=== PATIENT | female | born 1935 | race Caucasian/White ===

== ENCOUNTER 2018-02-09 15:05 | Outpatient (CLI) | payer MEDICARE, BC ==
--- NOTE | 2018-02-10 11:18 | XRAY Report ---
TWO VIEWS CERVICAL SPINE: 02/09/2018 INDICATION: Scoliosis. FINDINGS: Frontal and lateral views of the cervical spine demonstrate moderate degenerative disk disease. There is straightening of the normal cervical lordosis. There is no evidence of fracture or subluxation. The prevertebral soft tissues are unremarkable. IMPRESSION: MODERATE DEGENERATIVE CHANGES. TD: 02/10/2018 10:19
--- NOTE | 2018-02-10 11:19 | XRAY Report ---
TWO VIEW THORACIC SPINE: 02/09/2018 CLINICAL INDICATION: Scoliosis. FINDINGS: Frontal and lateral views of the thoracic spine demonstrate dextroscoliosis, measuring 51 degrees between T4 and T10. There is no evidence of compression fracture. Degenerative disk disease is noted. No paraspinal hematoma is seen. IMPRESSION: DEXTROSCOLIOSIS, MEASURING 51 DEGREES BETWEEN T4 AND T10. TD: 02/10/2018 10:21
--- NOTE | 2018-02-10 11:20 | XRAY Report ---
TWO VIEW LUMBAR SPINE: 02/09/2018 CLINICAL INDICATION: Sciatica, scoliosis. FINDINGS: Frontal and lateral views of the lumbar spine demonstrate moderate degenerative disk and facet disease, with 21-degree compensatory levoscoliosis. The bowel gas pattern appears unremarkable. No compression fracture is seen. IMPRESSION: MODERATE DEGENERATIVE CHANGES, WITH COMPENSATORY LEVOSCOLIOSIS. TD: 02/10/2018 10:22
== END 2018-02-09 15:06 | disposition home or self-care (01) ==
LOC: DI 15:05
PROVIDERS: ATTEND Internal Medicine
DX: M54.30 Sciatica, unspecified side (principal); M41.84 Other forms of scoliosis, thoracic region; M41.86 Other forms of scoliosis, lumbar region; M50.30 Other cervical disc degeneration, unspecified cervical region; M51.36 Other intervertebral disc degeneration, lumbar region; M51.34 Other intervertebral disc degeneration, thoracic region
CPT/HCPCS: 72040; 72070; 72100

== ENCOUNTER 2018-10-10 03:12 | Outpatient (CLI) | payer MEDICARE, BC | END 2018-10-10 03:13 | disposition EMS.NT | LOC: EMS 03:12 | PROVIDERS: ATTEND Surgery | DX: R41.0 Disorientation, unspecified (principal) ==

== ENCOUNTER 2019-02-20 13:34 | Outpatient (CLI) | payer MEDICARE, BC | END 2019-02-20 13:35 | disposition EMS.NT | LOC: EMS 13:34 | PROVIDERS: ATTEND Surgery | DX: R41.0 Disorientation, unspecified (principal) ==

== ENCOUNTER 2019-04-04 16:18 | Outpatient (CLI) | payer MEDICARE, BC | END 2019-04-04 16:19 | disposition EMS.NT | LOC: EMS 16:18 | PROVIDERS: ATTEND Surgery | DX: R73.09 Other abnormal glucose (principal) ==

== ENCOUNTER 2019-04-19 11:14 | Outpatient (CLI) | payer MEDICARE, BC | END 2019-04-19 11:15 | disposition EMS.NT | LOC: EMS 11:14 | PROVIDERS: ATTEND Surgery | DX: R73.09 Other abnormal glucose (principal) ==

== ENCOUNTER 2019-04-29 02:36 | Outpatient (CLI) | payer MEDICARE, BC | END 2019-04-29 02:37 | disposition EMS.NT | LOC: EMS 02:36 | PROVIDERS: ATTEND Surgery | DX: R73.09 Other abnormal glucose (principal) ==

== ENCOUNTER 2019-05-15 07:14 | Outpatient (CLI) | payer MEDICARE, BC ==
[2019-05-15 10:28] LABS: CALCIUM 8.8 mg/dL (8.5-10.3); CREATININE 0.6 mg/dL (0.4-1.0); CREATININE,URINE 47.5 mg/dL; MICROALBUM/CREATININE RATIO,UR 6.3 ug/mg (<30.0); MICROALBUMIN,URINE 0.3 mg/dL (0-300.0)
[2019-05-15 10:54] LABS: HB2 TOTAL 13.7 g/dL; HEMOGLOBIN A1C 0.66 g/dL; HEMOGLOBIN A1C % 6.6 % (4.6-6.2)
== END 2019-05-15 07:15 | disposition home or self-care (01) ==
LOC: LAB.S 07:14
PROVIDERS: ATTEND Nurse Practitioner
DX: E10.9 Type 1 diabetes mellitus without complications (principal)
CPT/HCPCS: 36415; 80048; 82043; 82570; 83036; 84443

== ENCOUNTER 2020-01-16 15:56 | Outpatient (CLI) | payer MEDICARE, BC | END 2020-01-16 15:57 | disposition EMS.NT | LOC: EMS 15:56 | PROVIDERS: ATTEND Surgery | DX: R73.09 Other abnormal glucose (principal); W18.30XA Fall on same level, unspecified, initial encounter; Y92.012 Bathroom of single-family (private) house as the place of occurrence of the external cause ==

== ENCOUNTER 2020-09-30 21:19 | Outpatient (CLI) | payer MEDICARE, BC ==
--- OUTSIDE RECORDS SUMMARY | 2020-10-08 00:29 | EXTERNAL MEDICAL SUMMARY RPT | Continuity of Care Document ---
:1935 Demographics Phone Unavailable Preferred Language Unknown Marital Status Unknown Restoration Affiliation Unknown Race Unknown Ethnic Group Unknown Author Organization [facility] Address [address] [place] [address] Phone Care Team Providers Name Role Phone Ni Unavailable Unavailable Problems date description facility 2020-09-30 21:19 CONTACT WITH AND (SUSPECTED) [facility] EXPOSURE TO COVID-19 Results test status date ordered by attending specimen josefina e null F 2020-09-30 LANG.99 MANDY TIMMY 09-30 16:21:00 12:00:00 facility observation status value reference units [facility] See [facility] s eparate report - Report scanned to Patient' s EMR. [facility] Social History date description facility [id number]
== END 2020-09-30 21:20 | disposition home or self-care (01) ==
LOC: COV 21:19
PROVIDERS: ATTEND Family Medicine
DX: Z20.822 Contact with and (suspected) exposure to COVID-19 (principal)

== ENCOUNTER 2021-01-13 07:25 | Outpatient (CLI) | payer MEDICARE, BC ==
[2021-01-13 15:34] LABS: CREATININE,URINE 70.1 mg/dL; MICROALBUM/CREATININE RATIO,UR 2.9 ug/mg (<30.0); MICROALBUMIN,URINE 0.2 mg/dL (0-300.0)
[2021-01-13 19:41] LABS: ESTIMATED AVERAGE GLUCOSE 143 mg/dL (70-100); HEMOGLOBIN A1c% 6.6 % (4.27-6.07)
== END 2021-01-13 07:26 | disposition home or self-care (01) ==
LOC: LAB.S 07:25
PROVIDERS: ATTEND Nurse Practitioner
DX: E10.649 Type 1 diabetes mellitus with hypoglycemia without coma (principal)
CPT/HCPCS: 36415; 82043; 82570; 83036

== ENCOUNTER 2021-04-08 20:14 | Outpatient (CLI) | payer MEDICARE, BC | END 2021-04-08 20:15 | disposition EMS.NT | LOC: EMS 20:14 | DX: Z04.1 Encounter for examination and observation following transport accident (principal); R46.4 Slowness and poor responsiveness ==

== ENCOUNTER 2022-02-23 14:16 | Outpatient (CLI) | payer MEDICARE, BC ==
[2022-02-23 20:17] LABS: ALBUMIN 3.5 g/dL (3.2-5.5); ALBUMIN/GLOBULIN RATIO 1.1 (1.0-2.2); BILIRUBIN,TOTAL 1.3 mg/dL (0.2-1.0); CALCIUM 8.7 mg/dL (8.5-10.3); CREATININE 0.5 mg/dL (0.4-1.0); POTASSIUM 4.3 mmol/L (3.5-5.0); TOTAL PROTEIN 6.8 g/dL (6.7-8.2)
[2022-02-23 21:35] LABS: ESTIMATED AVERAGE GLUCOSE 140 mg/dL (70-100); HEMOGLOBIN A1c% 6.5 % (4.27-6.07)
== END 2022-02-23 14:17 | disposition home or self-care (01) ==
LOC: LAB.S 14:16
PROVIDERS: ATTEND Physician Assistant
DX: E10.9 Type 1 diabetes mellitus without complications (principal)
CPT/HCPCS: 36415; 80053; 83036

== ENCOUNTER 2022-04-15 17:52 | Outpatient (CLI) | payer MEDICARE, BC | END 2022-04-15 17:53 | disposition EMS.NT | LOC: EMS 17:52 | DX: E10.649 Type 1 diabetes mellitus with hypoglycemia without coma (principal) ==

== ENCOUNTER 2022-04-18 17:10 | Outpatient (CLI) | payer MEDICARE, BC | END 2022-04-18 17:11 | disposition left against medical advice (07) | LOC: EMS 17:10 | DX: E10.649 Type 1 diabetes mellitus with hypoglycemia without coma (principal) ==

== ENCOUNTER 2022-11-11 10:58 | Outpatient (CLI) | payer MEDICARE, BC | END 2022-11-11 23:59 | disposition EMS.NT | LOC: EMS 10:58 | DX: E11.649 Type 2 diabetes mellitus with hypoglycemia without coma (principal) ==

== ENCOUNTER 2023-01-18 12:16 | Outpatient (CLI) | payer MEDICARE, BC | END 2023-01-18 12:17 | disposition home or self-care (01) | LOC: DI.S 12:16 | PROVIDERS: ATTEND Nurse Practitioner Family | DX: Z53.9 Procedure and treatment not carried out, unspecified reason (principal) ==

== ENCOUNTER 2023-03-19 18:40 | Outpatient (CLI) | payer MEDICARE, BC | END 2023-03-19 23:59 | disposition critical access hospital (66) | LOC: EMS 18:40 | DX: R41.0 Disorientation, unspecified (principal) | CPT/HCPCS: A0425; A0429 ==

== ENCOUNTER 2023-03-19 19:07 | Emergency (ER) | payer MEDICARE, BC ==
--- NOTE | 2023-03-19 19:21 | ED Physician Documentation ---
History of Present Illness - Stated complaint Stated Complaint: AMS - History obtained from History obtained from: Patient - Additonal information Additional information: 88-year-old woman with longstanding type 1 diabetes became confused while riding in the car planning to go out to dinner with a friend. She had skipped lunch earlier in the day planning on this meal. Her blood sugar was 65 and the confusion went away after the administration of oral glucose. She denies headache, focal neurologic symptoms. 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, No motor deficit, No sensory deficit, Normal speech, Other (NIH stroke scale is 0) Eye Opening: Spontaneous Motor: Obeys Commands Verbal: Oriented GCS Score: 15 Results - Vitals Vitals: Vital Signs - 24 hr 03/19/23 03/19/23 03/19/23 19:18 19:33 19:58 Temperature 36.2 C L Heart Rate 95 81 86 Respiratory 16 16 16 Rate Blood Pressure 221/111 H 205/94 H 176/99 H O2 Saturation 100 94 100 Oxygen O2 Source Room air - Labs Labs: Laboratory Tests 03/19/23 19:12 POC Whole Bld Glucose 141 H PD Medical Decision Making - ED course ED course: 88-year-old woman had an episode of confusion associated with hypoglycemia which has resolved prior to the arrival in the emergency department with negative stroke scale and no complaints or findings at this time other than systolic hypertension. She does not have a history of hypertension. She was observed in the emergency department and remained asymptomatic with improvement in her blood pressures. Departure - Departure Disposition: 01 Home, Self Care Clinical Impression: Hypoglycemia Condition: Good Record reviewed to determine appropriate education?: Yes Instructions: ED Diabetes Hypoglycemia Insulin React Comments: Keep an eye on both your blood sugar and blood pressures. Your blood pressure was fairly elevated here. Follow-up with your doctor this week for further evaluation and treatment. Return for new or worsening symptoms.
[2023-03-19 20:25] VITALS: BP 192/83
== END 2023-03-19 20:28 | disposition home or self-care (01) ==
LOC: EDUNIT# → ED 19:07
DX: E10.649 Type 1 diabetes mellitus with hypoglycemia without coma (principal)
CPT/HCPCS: 99282; 99283

== ENCOUNTER 2023-05-03 21:38 | Outpatient (CLI) | payer MEDICARE, BC | END 2023-05-03 21:39 | disposition EMS.NT | LOC: EMS 21:38 | DX: Z03.89 Encounter for observation for other suspected diseases and conditions ruled out (principal) ==

== ENCOUNTER 2023-10-05 11:51 | Outpatient (CLI) | payer MEDICARE, BC ==
--- NOTE | 2023-10-05 13:57 | XRAY Report ---
PROCEDURE: Shoulder 2+V LT INDICATIONS: PAIN OF LEFT SHOULDER JOINT TECHNIQUE: 3 views of the shoulder were acquired. COMPARISON: None. FINDINGS: Bones: No fractures or dislocations. No suspicious bony lesions. Visualized ribs appear intact. Moderate acromioclavicular degenerative narrowing with spurring. Mild glenohumeral joint space narrow ing. No gross erosions. Soft tissues: No suspicious soft tissue calcifications. The visualized lungs are within normal limi ts. IMPRESSION: Acromioclavicular and glenohumeral arthritic change. Reviewed by: Saima Musa MD on 10/05/2023 1:55 PM PST Approved by: Saima Musa MD on 10/05/2023 1:55 PM PST Station ID: [id number]
== END 2023-10-05 11:52 | disposition home or self-care (01) ==
LOC: DI.S 11:51
PROVIDERS: ATTEND Nurse Practitioner Family
DX: M19.012 Primary osteoarthritis, left shoulder (principal)

== ENCOUNTER 2023-10-09 09:25 | Outpatient (CLI) | payer MEDICARE ==
--- NOTE | 2023-10-09 17:06 | Ultrasound Report ---
PROCEDURE: Abdomen Limited INDICATIONS: ELEVATED LIVER ENZYMES TECHNIQUE: Real-time focused scanning was performed of the abdomen, with image documentation. COMPARISONS: None. FINDINGS: Liver: Liver is normal in size and homogeneous in echotexture. Gallbladder: The gallbladder wall measures 2 mm in diameter. No sludge, stones, pericholecystic fluid or sonographic Snell sign. Biliary ducts: Intrahepatic bile ducts are non-dilated. Extrahepatic bile duct caliber measures 3 m m. Normal is 6-7 mm or less in diameter, or 10 mm or less post-cholecystectomy. Pancreas: Visualized portions of the pancreas are sonographically normal. Right kidney: Normal in size and echotexture. Right kidney measures 11.0 cm long. No hydronephrosis or nephrolithiasis. No solid masses. No complex renal cystic lesions which require follow-up. Aorta: Visualized aorta is normal in caliber at less than 3 cm. IVC: Intrahepatic inferior vena cava is patent. Miscellaneous: No free abdominal fluid. IMPRESSION: 1. No cholelithiasis or findings to suggest choledocholithiasis or acute cholecystitis. Reviewed by: Tiffany Chau MD on 10/09/2023 5:05 PM PST Approved by: Tiffany Chau MD on 10/09/2023 5:05 PM PST Station ID: [id number]
== END 2023-10-09 09:26 | disposition home or self-care (01) ==
LOC: DI 09:25
PROVIDERS: ATTEND Nurse Practitioner Family
DX: R74.01 Elevation of levels of liver transaminase levels (principal)

== ENCOUNTER 2023-10-09 09:53 | Emergency (ER) | payer MEDICARE ==
[2023-10-09 10:28] VITALS: O2SAT 100
--- NOTE | 2023-10-09 11:46 | ED Physician Documentation ---
History of Present Illness - Stated complaint Stated Complaint: WEAKNESS/RASH/SHOULDER PX - Chief complaint Chief Complaint: General - History obtained from History obtained from: Patient, Family - History of Present Illness Pain level max: 3 Pain level now: 3 - Additonal information Additional information: Patient is an 88-year-old female who presents to the emergency department complaint of generalized weakness for the past several days. She is a diabetic. Blood sugars reportedly are well-controlled at home. She has developed a diffuse rash over her anterior chest over the past 1 week. She has had left shoulder pain for several months, diagnosed as arthritis versus possible rotator cuff injury. She states her right shoulder hurts mildly now as well. Worse with movement, better with rest. No chest pain. Denies any shortness of breath to me. Her son is with her and states that she has been weaker than usual over the past 1 week. They came to the hospital this morning for an outpatient ultrasound of her liver due to elevated liver enzymes after taking Tylenol recently. The son brought a note from another family member that had remarked about pitting edema, the patient denies any swelling. She states she does not feel swollen. She has no history of heart failure, heart attacks. Review of Systems Constitutional: denies: Fever, Chills Ears: denies: Ear pain Nose: denies: Rhinorrhea / runny nose Throat: denies: Sore throat Cardiac: denies: Chest pain / pressure, Palpitations Respiratory: denies: Dyspnea, Cough, Wheezing GI: denies: Vomiting, Diarrhea Skin: reports: Rash (Itchy, erythematous, anterior chest) Musculoskeletal: denies: Neck pain, Back pain Neurologic: denies: Headache PD PAST MEDICAL HISTORY - Past Medical History Past Medical History: Yes Cardiovascular: None Respiratory: None Neuro: None Endocrine/Autoimmune: Type 1 diabetes GI: Other WORKING FOREMAN: None : None HEENT: None Psych: None Musculoskeletal: Other Derm: Eczema - Past Surgical History Past Surgical History: Yes Ortho: Knee replacement, Arthroscopic surgery, Carpal Tunnel surgery HEENT: Cataracts - Present Medications Home Medications: Ambulatory Orders Medication Instructions Recorded Confirmed Esomeprazole Magnesium [Nexium] 40 mg PO DAILY #30 cap 10/09/23 Furosemide [Lasix] 20 mg PO DAILY #10 tablet 10/09/23 Insulin Aspart (Niacinamide) 4 - 6 unit SUBQ ACHS 10/09/23 10/09/23 [Fiasp 100 Unit/ml Vial] Insulin Glargine,Hum.rec.anlog 6 units SUBQ DAILY 10/09/23 10/09/23 [Tofabricehussain Solostar] Potassium Chloride 10 meq PO DAILY #10 tab 10/09/23 - Allergies Allergies/Adverse Reactions: Allergies Allergy/AdvReac Type Severity Reaction Status Date / Time Antihistamines - Alkylamine Allergy Unknown Verified 10/09/23 10:14 Penicillins Allergy Rash Verified 10/09/23 10:14 - Social History Does the pt smoke?: No Smoking Status: Former smoker Does the pt drink ETOH?: Yes ETOH Use: Wine Does the pt have substance abuse?: No - Immunizations Immunizations are current?: Yes PD ED PE NORMAL - Vitals Vital signs reviewed: Yes - General General: Alert and oriented X 3, No acute distress - HEENT HEENT: PERRL, Moist mucous membranes - Neck Neck: Supple, no meningeal sign - Cardiac Cardiac: RRR, Strong equal pulses - Respiratory Respiratory: No respiratory distress, Clear bilaterally - Abdomen Abdomen: Soft, Non tender, Non distended - Rectal Rectal: Other (normal exam. no stool in rectal vault.) - Back Back: No CVA TTP, No spinal TTP - Derm Derm: Warm and dry - Extremities Extremities: No edema, No calf tenderness / cord - Neuro Neuro: Alert and oriented X 3, adz worker 2-12 intact, No motor deficit, No sensory deficit, Normal speech Eye Opening: Spontaneous Motor: Obeys Commands Verbal: Oriented GCS Score: 15 - Psych Psych: Normal mood, Normal affect Results - Vitals Vitals: Vital Signs - 24 hr 10/09/23 10/09/23 10/09/23 10:17 13:19 15:28 Temperature 36.4 C L 36 C L Heart Rate 80 68 77 Respiratory 18 20 20 Rate Blood Pressure 126/94 H 133/58 H 153/68 H O2 Saturation 100 100 100 10/09/23 17:20 Temperature 36.2 C L Heart Rate 81 Respiratory 18 Rate Blood Pressure 170/76 H O2 Saturation 100 Oxygen O2 Source Room air - EKG (time done) 1151 EKG releavant findings:: EKG personally interpreted by author of this note. Relevant findings are: Rate: Rate (enter#) (72) Rhythm: NSR [place]: Normal Intervals: Normal AK QRS: Normal Ischemia: Normal ST segments, Q waves (v1-2) - Labs Labs: Laboratory Tests 10/09/23 10/09/23 10/09/23 11:50 11:50 11:50 WBC 7.6 RBC 3.30 L Hgb 10.1 L Hct 30.6 L MCV 92.7 MCH 30.6 MCHC 33.0 RDW 13.2 Plt Count 371 MPV 8.8 Neut # (Auto) 5.5 Lymph # (Auto) 0.6 L [place] # (Auto) 0.7 Eos # (Auto) 0.7 Baso # (Auto) 0.1 Absolute Nucleated RBC 0.00 Nucleated RBC % 0.0 PT INR APTT Sodium 134 L Potassium 3.8 Chloride 99 L Carbon Dioxide 25 Anion Gap 10.0 BUN 13 Creatinine 0.4 L Estimated GFR (MDRD) 151 Glucose 138 H Calcium 8.4 L Phosphorus 3.4 Magnesium 1.6 L Total Bilirubin 0.8 AST 106 H ALT 61 H Alkaline Phosphatase 64 Troponin I High Sens 19.6 H* B-Natriuretic Peptide Total Protein 5.7 L Albumin 3.1 L Globulin 2.6 Albumin/Globulin Ratio 1.2 Lipase 10 L Urine Color Urine Clarity Urine pH Ur Specific [place] Urine Protein Urine Glucose (UA) Urine Ketones Urine Occult Blood Urine Nitrite Urine Bilirubin Urine Urobilinogen Ur Leukocyte Esterase Ur Microscopic Review Urine Culture Comments 10/09/23 10/09/23 10/09/23 11:50 12:02 13:45 WBC RBC Hgb Hct MCV MCH MCHC RDW Plt Count MPV Neut # (Auto) Lymph # (Auto) [place] # (Auto) Eos # (Auto) Baso # (Auto) Absolute Nucleated RBC Nucleated RBC % PT 13.6 H INR 1.2 APTT 27.5 Sodium Potassium Chloride Carbon Dioxide Anion Gap BUN Creatinine Estimated GFR (MDRD) Glucose Calcium Phosphorus Magnesium Total Bilirubin AST ALT Alkaline Phosphatase Troponin I High Sens B-Natriuretic Peptide 411 H Total Protein Albumin Globulin Albumin/Globulin Ratio Lipase Urine Color YELLOW Urine Clarity CLEAR Urine pH 6.0 Ur Specific [place] 1.015 Urine Protein NEGATIVE Urine Glucose (UA) NEGATIVE Urine Ketones NEGATIVE Urine Occult Blood NEGATIVE Urine Nitrite NEGATIVE Urine Bilirubin NEGATIVE Urine Urobilinogen 1 (NORMAL) Ur Leukocyte Esterase NEGATIVE Ur Microscopic Review NOT INDICATED Urine Culture Comments NOT INDICATED 10/09/23 16:08 WBC 7.0 RBC 3.39 L Hgb 10.2 L Hct 31.5 L MCV 92.9 MCH 30.1 MCHC 32.4 RDW 13.3 Plt Count 349 MPV 8.8 Neut # (Auto) 4.9 Lymph # (Auto) 0.6 L [place] # (Auto) 0.7 Eos # (Auto) 0.7 Baso # (Auto) 0.0 Absolute Nucleated RBC 0.00 Nucleated RBC % 0.0 PT INR APTT Sodium Potassium Chloride Carbon Dioxide Anion Gap BUN Creatinine Estimated GFR (MDRD) Glucose Calcium Phosphorus Magnesium Total Bilirubin AST ALT Alkaline Phosphatase Troponin I High Sens B-Natriuretic Peptide Total Protein Albumin Globulin Albumin/Globulin Ratio Lipase Urine Color Urine Clarity Urine pH Ur Specific [place] Urine Protein Urine Glucose (UA) Urine Ketones Urine Occult Blood Urine Nitrite Urine Bilirubin Urine Urobilinogen Ur Leukocyte Esterase Ur Microscopic Review Urine Culture Comments - Rads (name of study) Chest x-ray Relevant Findings:: Final report received, See rad report PD Medical Decision Making - ED course Complexity details: reviewed results, re-evaluated patient, considered differential, d/w patient, d/w family ED course: 88-year-old female with multiple medical complaints. Normal liver ultrasound this morning. LFTs are returning back to her normal baseline. No bilirubin elevation. Alkaline phosphatase is normal. Possible that her mild LFT elevation earlier was secondary to her Tylenol use. She does have a slight rash over the anterior chest, but there are no secondary signs of infection, overall the rash appears to be improving from what it was prior, possible rash from cholestasis? She is diabetic, we will hold steroids at this time. Her laboratory testing does reveal a drop in her protein and albumin, recommend increasing her nutrition at home. She does have a mild normocytic anemia, discussed the case with her [id number] who is a physician in [place], states that 2 weeks ago her hemoglobin was 12, it is 10 currently. There is no change on repeat H&H in the emergency department. CT scan does show possible thickening of her stomach consistent with gastritis and possible mild colitis. Patient states she has never had a colonoscopy. Recommend that she have an outpatient colonoscopy as well as endoscopy. Will start the patient on omeprazole. She also has a mild elevation of her BNP and has a reported history of pitting edema. Therefore we will start her on Lasix and potassium. There is no indication for antibiotics for her colitis, she is not having fevers, elevated white blood cell count, noticeable blood in the stool. She does have occasional diarrhea. We will hold antibiotics at this time. Patient was given IV magnesium and IV fluids, feels better and is ambulating under her own power without difficulty. GCS 15. Normal neurological exam. Patient and family counseled regarding signs and symptoms for which I believe and urgent re- evaluation would be necessary. Patient with good understanding of and agreement to plan and is comfortable going home at this time This document was made in part using voice recognition software. While efforts are made to proofread this document, sound alike and grammatical errors may occur. Departure - Departure Disposition: Home, Self Care Clinical Impression: Colitis, Hypomagnesemia Anemia Qualifiers: Anemia type: unspecified type Qualified Code(s): D64.9 - Anemia, unspecified Gastritis Qualifiers: Gastritis type: unspecified gastritis Chronicity: acute Gastritis bleeding: presence of bleeding unspecified Qualified Code(s): K29.00 - Acute gastritis without bleeding Condition: Good Instructions: ED Gastritis Follow-Up: Elizabeth Willett ARNP [Provider Admit Priv/Credential] - Elizabeth Willett ARNP [Physician No Access] - Abisai Terrazas MD [Provider Admit Priv/Credential] - [facility] [Provider Group] Prescriptions: Furosemide [Lasix] 20 mg PO DAILY #10 tablet Esomeprazole Magnesium [Nexium] 40 mg PO DAILY #30 cap Potassium Chloride 10 meq PO DAILY #10 tab Comments: Please follow-up with your doctor for further care. Please return if you worsen. You do have a mild anemia today, after speaking with your [id number], it appears that your hemoglobin was 12 2 weeks ago and is 10 today. There is no change on repeat blood draw tonight. Your CT scan does show evidence of gastritis or thickening of the stomach, we will start you on medication for this. There is also evidence of thickening in the colon consistent with possible colitis. As you are not having fevers or an elevated white count or pain, we will hold antibiotics at this time and recommend that y ou have a colonoscopy and endoscopy for further evaluation. Your magnesium was low and you were given IV magnesium here. Your protein levels are low as well, you need to ensure that you are eating adequate levels of protein at home. Your liver function tests are improved from your prior blood draw, this will need to be continued to be monitored by your doctor. You do have an elevation of your BNP, you will need a cardiac echocardiogram with your doctor. They can order this to be done at the hospital. We will start you on Lasix to help any excess fluid retention. The potassium needs to be taken while you are taking the Lasix as Lasix can decrease your potassium levels. Your prescriptions were sent to [facility] in [place]. PROCEDURE: Abdomen/Pelvis W INDICATIONS: weakness, hgb CONTRAST: Omni 300 100ml TECHNIQUE: After the administration of intravenous contrast, a CT scan of the abdomen and pelvis was performed. Images were recorded and evaluated at appropriate window settings. Reformats: coronal and sagittal. For radiation dose reduction, the following was used: automated exposure control, adjustment of mA and/or kV according to patient size. COMPARISON: None. FINDINGS: Image quality: Excellent. Lung bases and heart: Unremarkable. Liver: No solid mass. Gallbladder and biliary tree: Normal Spleen: No splenomegaly. Pancreas: No pancreatic ductal dilation. Adrenals: No adrenal nodule. Kidneys and ureters: No hydronephrosis. No renal cystic lesion which requires follow up. No solid mass. Bowel and peritoneum: No bowel distention. Diffuse colonic inflammatory changes with wall thickening from the sigmoid through the distal cecum. No abscess or free fluid identified. Wall thickening of the stomach. Lymph nodes: No central or retroperitoneal adenopathy. Vessels: No infrarenal aortic aneurysm. PELVIS Reproductive organs: Calcified fibroids. Bladder: No abnormal wall thickening, accounting for underdistention. Pelvic lymph nodes: No pelvic adenopathy by size criteria. Bones: No aggressive osseous abnormality. Multilevel degenerative changes throughout the visualized spine. Other: No significant ventral or inguinal hernia. IMPRESSION: Wall thickening of the colon concerning for colitis Wall thickening of the stomach may be exaggerated by under-distention but is concerning for gastritis. Forms: PCP List Discharge Date/Time: 10/09/23 17:41
[2023-10-09 11:59] LABS: BASOPHILS # (AUTO) 0.1 10^3/uL (0.0-0.1); BASOPHILS % (AUTO) 0.7 %; EOSINOPHILS # (AUTO) 0.7 10^3/uL (0.0-0.7); EOSINOPHILS % (AUTO) 9.1 %; HCT - HEMATOCRIT 30.6 % (37.0-47.0); HGB - HEMOGLOBIN 10.1 g/dL (12.0-16.0); LYMPHOCYTES # (AUTO) 0.6 10^3/uL (1.5-3.5); LYMPHOCYTES % (AUTO) 7.5 %; MEAN CORPUSCULAR HEMOGLOBIN 30.6 pg (27.0-31.0); MEAN CORPUSCULAR VOLUME 92.7 fL (81.0-99.0); MEAN PLATELET VOLUME 8.8 fL (7.9-10.8); MONOCYTES # (AUTO) 0.7 10^3/uL (0.0-1.0); MONOCYTES % (AUTO) 9.1 %; NEUTROPHILS # (AUTO) 5.5 10^3/uL (1.5-6.6); NEUTROPHILS % (AUTO) 73.1 %; PLT - PLATELET COUNT 371 10^3/uL (130-450); RED CELL DISTRIBUTION WIDTH 13.2 % (12.0-15.0); WHITE BLOOD COUNT 7.6 x10^3/uL (4.8-10.8)
[2023-10-09 12:13] LABS: ALBUMIN 3.1 g/dL (3.2-5.5); ALBUMIN/GLOBULIN RATIO 1.2 (1.0-2.2); BILIRUBIN,TOTAL 0.8 mg/dL (0.2-1.0); CALCIUM 8.4 mg/dL (8.5-10.3); CREATININE 0.4 mg/dL (0.6-1.3); MAGNESIUM 1.6 mg/dL (1.7-2.3); PHOSPHORUS 3.4 mg/dL (2.5-5.0); POTASSIUM 3.8 mmol/L (3.5-4.5); TOTAL PROTEIN 5.7 g/dL (6.4-8.9)
[2023-10-09] MEDS ORDERED: MAGNESIUM SULFATE 2 GRAM 2 GM/50 ML BAG IV ONE (12:15)
[2023-10-09] MEDS ORDERED: SODIUM CHLORIDE 0.9% 500 ML IV STA (12:15)
[2023-10-09 12:23] LABS: PARTIAL THROMBOPLASTIN TIME 27.5 secs (24.9-33.3)
[2023-10-09 12:28] LABS: INR 1.2 (0.8-1.2); PT - PROTHROMBIN TIME 13.6 secs (9.9-12.6)
[2023-10-09] MEDS ORDERED: FUROSEMIDE 20 MG/2 ML VIAL IVP STA (12:34)
--- NOTE | 2023-10-09 12:35 | XRAY Report ---
PROCEDURE: Chest 1V INDICATIONS: dyspnea TECHNIQUE: One view of the chest was acquired. COMPARISON: None. FINDINGS: Surgical changes and devices: None. Lungs and pleura: No pleural effusions or pneumothorax. Lungs are clear. Mediastinum: Mediastinal contours appear normal. Heart size is normal. Bones and chest wall: No suspicious bony lesions. Overlying soft tissues appear unremarkable. Ser pentine curvature of the thoracic spine. IMPRESSION: No acute cardiopulmonary process. Reviewed by: Mahendra Chance MD on 10/09/2023 11:34 AM [facility] Approved by: Mahendra Chance MD on 10/09/2023 11:34 AM [facility] Station ID: [id number]
[2023-10-09] MEDS ORDERED: iohexoL-300 100 ML VIAL ONE (13:49)
[2023-10-09 14:26] LABS: BILIRUBIN,URINE NEGATIVE (NEGATIVE); GLUCOSE, URINE (UA) NEGATIVE (NEGATIVE); KETONES,URINE (UA) NEGATIVE (NEGATIVE); LEUKOCYTE ESTERASE, URINE NEGATIVE (NEGATIVE); NITRITE,URINE NEGATIVE (NEGATIVE); OCCULT BLOOD,URINE NEGATIVE (NEGATIVE); PROTEIN,URINE NEGATIVE (NEGATIVE); UROBILINOGEN,URINE 1 (NORMAL) E.U./dL (NORMAL)
[2023-10-09 14:27] LABS: CLARITY,URINE CLEAR (CLEAR)
[2023-10-09 16:15] LABS: BASOPHILS % (AUTO) 0.6 %; EOSINOPHILS # (AUTO) 0.7 10^3/uL (0.0-0.7); EOSINOPHILS % (AUTO) 10.6 %; HCT - HEMATOCRIT 31.5 % (37.0-47.0); HGB - HEMOGLOBIN 10.2 g/dL (12.0-16.0); LYMPHOCYTES # (AUTO) 0.6 10^3/uL (1.5-3.5); MEAN CORPUSCULAR HEMOGLOBIN 30.1 pg (27.0-31.0); MEAN CORPUSCULAR HGB CONC 32.4 g/dL (32.0-36.0); MEAN CORPUSCULAR VOLUME 92.9 fL (81.0-99.0); MEAN PLATELET VOLUME 8.8 fL (7.9-10.8); MONOCYTES # (AUTO) 0.7 10^3/uL (0.0-1.0); MONOCYTES % (AUTO) 10.4 %; NEUTROPHILS # (AUTO) 4.9 10^3/uL (1.5-6.6); NEUTROPHILS % (AUTO) 70.1 %; PLT - PLATELET COUNT 349 10^3/uL (130-450); RED BLOOD COUNT 3.39 10^6/uL (4.20-5.40); RED CELL DISTRIBUTION WIDTH 13.3 % (12.0-15.0)
--- NOTE | 2023-10-09 16:40 | CT Report ---
PROCEDURE: Abdomen/Pelvis W INDICATIONS: weakness, hgb CONTRAST: Omni 300 100ml TECHNIQUE: After the administration of intravenous contrast, a CT scan of the abdomen and pelvis was performed. Images were recorded and evaluated at appropriate window settings. Reformats: coronal and sagittal. F or radiation dose reduction, the following was used: automated exposure control, adjustment of mA and /or kV according to patient size. COMPARISON: None. FINDINGS: Image quality: Excellent. Lung bases and heart: Unremarkable. Liver: No solid mass. Gallbladder and biliary tree: Normal Spleen: No splenomegaly. Pancreas: No pancreatic ductal dilation. Adrenals: No adrenal nodule. Kidneys and ureters: No hydronephrosis. No renal cystic lesion which requires follow up. No solid mas s. Bowel and peritoneum: No bowel distention. Diffuse colonic inflammatory changes with wall thickening from the sigmoid through the distal cecum. No abscess or free fluid identified. Wall thickening of th e stomach. Lymph nodes: No central or retroperitoneal adenopathy. Vessels: No infrarenal aortic aneurysm. PELVIS Reproductive organs: Calcified fibroids. Bladder: No abnormal wall thickening, accounting for underdistention. Pelvic lymph nodes: No pelvic adenopathy by size criteria. Bones: No aggressive osseous abnormality. Multilevel degenerative changes throughout the visualized s pine. Other: No significant ventral or inguinal hernia. IMPRESSION: Wall thickening of the colon concerning for colitis Wall thickening of the stomach may be exaggerated by under-distention but is concerning for gastritis . Reviewed by: Mahendra Chance MD on 10/09/2023 3:39 PM [facility] Approved by: Mahendra Chance MD on 10/09/2023 3:39 PM [facility] Station ID: [id number]
[2023-10-09 17:25] VITALS: BP 170/76
[2023-10-09] MEDS ORDERED: iohexoL-300 100 ML VIAL IVP ONE (19:14)
== END 2023-10-09 17:41 | disposition home or self-care (01) ==
LOC: ED 09:53
DX: K29.00 Acute gastritis without bleeding (principal); D64.9 Anemia, unspecified; K52.9 Noninfective gastroenteritis and colitis, unspecified; E83.42 Hypomagnesemia; R74.01 Elevation of levels of liver transaminase levels; E10.9 Type 1 diabetes mellitus without complications; Z79.4 Long term (current) use of insulin; Z87.891 Personal history of nicotine dependence
CPT/HCPCS: 36415; 71045; 74177; 76705; 80053; 81003; 83690; 83735; 83880; 84100; 84484; 85025; 85610; 85730; 93005; 96365; 96375; 99284; Q9967; 81001; 87086

== ENCOUNTER 2023-10-16 12:20 | Outpatient (CLI) | payer MEDICARE | END 2023-10-16 12:21 | disposition home or self-care (01) | LOC: EMS 12:20 | DX: S20.211A Contusion of right front wall of thorax, initial encounter (principal); W01.190A Fall on same level from slipping, tripping and stumbling with subsequent striking against furniture, initial encounter; Y92.009 Unspecified place in unspecified non-institutional (private) residence as the place of occurrence of the external cause ==

== ENCOUNTER 2023-12-21 15:05 | Outpatient (CLI) | payer MEDICARE, BC | END 2023-12-21 15:06 | disposition home or self-care (01) | LOC: DI 15:05 | PROVIDERS: ATTEND Nurse Practitioner Family | DX: R89.1 Abnormal level of hormones in specimens from other organs, systems and tissues (principal) | CPT/HCPCS: 93307 ==

== ENCOUNTER 2024-01-03 16:59 | Outpatient (CLI) | payer MEDICARE | END 2024-01-03 23:59 | disposition EMS.NT | LOC: EMS 16:59 | DX: E11.649 Type 2 diabetes mellitus with hypoglycemia without coma (principal) ==

== ENCOUNTER 2024-02-05 16:59 | Outpatient (CLI) | payer MEDICARE, BC | END 2024-02-05 23:59 | disposition left against medical advice (07) | LOC: EMS 16:59 | DX: E11.649 Type 2 diabetes mellitus with hypoglycemia without coma (principal); Z79.4 Long term (current) use of insulin ==

== ENCOUNTER 2024-04-20 10:50 | Outpatient (CLI) | payer MEDICARE, BC | END 2024-04-20 23:59 | disposition EMS.NT | LOC: EMS 10:50 | DX: R53.1 Weakness (principal); U07.1 COVID-19; W01.0XXA Fall on same level from slipping, tripping and stumbling without subsequent striking against object, initial encounter; Y92.002 Bathroom of unspecified non-institutional (private) residence as the place of occurrence of the external cause ==

== ENCOUNTER 2025-07-21 18:58 | Observation (INO) ==
[2025-07-21 19:34] LABS: HCT - HEMATOCRIT 37.7 % (37.0-47.0); HGB - HEMOGLOBIN 12.1 g/dL (12.0-16.0); MEAN PLATELET VOLUME 9.5 fL (7.9-10.8); NRBC ABSOLUTE COUNT (AUTO) 0.00 x10^3/uL; NUCLEATED RED BLOOD CELLS AUTO 0.0 /100WBC; PLT - PLATELET COUNT 206 10^3/uL (130-450); RED CELL DISTRIBUTION WIDTH 15.2 % (12.0-15.0)
[2025-07-21 19:52] LABS: ALT ALANINE AMINOTRANSFERASE 17 IU/L (10-60); AST ASPARTATE AMINOTRANSFERASE 24 IU/L (10-42); BUN - BLOOD UREA NITROGEN 12 mg/dL (6-20); CARBON DIOXIDE - CO2 24 mmol/L (21-32); CK- CREATINE KINASE 131 IU/L (30-223); CREATININE 0.4 mg/dL (0.6-1.3); GFR - MDRD 151 (>89)
--- OUTSIDE RECORDS SUMMARY | 2025-07-21 20:06 | EXTERNAL MEDICAL SUMMARY RPT | Continuity of Care Document ---
Author Organization [facility] Address [address] [place] [id number] Phone Problems date description facility 2025-05-22 10:25 Pain [facility] right hip [facility] 2025-05-24 11:06 Pain in left hip [facility] 2025-07-16 16:30 Asymptomatic menopausal state [facility] Results/Labs test date facility value unit notes Result panel 1 COVID-19 [facility] 2025-05-19 12:35 [facility] NOT DETECTED (missing) YES Y NO NO NO NO NO NO A negative test result for this test indicates that SARS-CoV-2 RNA was not present in the specimen above the limit of detection. Testing performed on the [employer] RP2.1 Panel, a multiplexed nucleic acid repiratory panel. Negative results do not preclude infection with SARS-CoV-2 virus and should not be the sole basis of a patient management decision. In some patients repeat testing at various time points may be necessary for virus detection. False-negative results may arise from improper sample collection, degradation of viral RNA during shipping or storage, the presence of PCR inhibitors, and/or mutation in the SARS-CoV-2 virus. Result panel 2 SALICYLATE 2025-05-19 12:44 [facility] < 1.5 mg/dl Salicyalte Theraputic Range <30mg/dL As of March 2023 testing method has changed, this may include reference ranges. LIPASE 2025-05-19 12:44 [facility] < 10 u/l As of March 2023 testing method has changed, this may include reference ranges. ETOH - ETHANOL 2025-05-19 12:44 [facility] < 10.0 mg/dl Blood Alcohol Levels Level Sporadic Drinkers Chronic drinkers == 100 mg/dL Legally intoxicated* Minimal signs 200-250 mg/dL Alertness lost, Effort needed to becoming lethargic maintain emotional and motor control 300-350 mg/dL Stupor to coma Drowsy and slow >500 mg/dL Possible Coma *The legal definition of intoxication varies. This assy is for medical decision making only. As of March 2023 testing method has changed, this may include reference ranges. NUCLEATED RED BLOOD CELLS AUTO 2025-05-19 12:44 [facility] 0.0 /100wbc (missing) BASOPHILS # (AUTO) 2025-05-19 12:44 [facility] 0.0 10 3/ul (missing) EOSINOPHILS # (AUTO) 2025-05-19 12:44 [facility] 0.0 10 3/ul (missing) NRBC ABSOLUTE COUNT (AUTO) 2025-05-19 12:44 [facility] 0.00 x10 3/ul (missing) ACETAMINOPHEN 2025-05-19 12:44 [facility] 0.1 ug/ml Acetaminophen Therapeutic concentration 10-30 ug/mLHepatotoxicity concentrations - >150 ug/mL at 4hr after ingestion >75 ug/mL at 8hr after ingestion >40 ug/mL at 12hr after ingestion As of March 2023 testing method has changed, this may include reference ranges. MONOCYTES # (AUTO) 2025-05-19 12:44 [facility] 0.7 10 3/ul (missing) LYMPHOCYTES # (AUTO) 2025-05-19 12:44 [facility] 0.8 10 3/ul (missing) CREATININE 2025-05-19 12:44 [facility] 0.9 mg/dl As of March 2023 testing method has changed, this may include reference ranges. ALBUMIN/GLOBULIN RATIO 2025-05-19 12:44 [facility] 1.1 (missing) (missing) THYROID STIMULATING HORMONE 2025-05-19 12:44 [facility] 1.27 uiu/ml (missing) BILIRUBIN,TOTAL 2025-05-19 12:44 [facility] 1.6 mg/dl As of March 2023 testing method has changed, this may include reference ranges. HGB - HEMOGLOBIN 2025-05-19 12:44 [facility] 10.3 g/dl (missing) SODIUM 2025-05-19 12:44 [facility] 126 mmol/l (missing) RED CELL DISTRIBUTION WIDTH 2025-05-19 12:44 [facility] 14.4 % (missing) AST ASPARTATE AMINOTRANSFERASE 2025-05-19 12:44 [facility] 17 iu/l As of March 2023 testing method has changed, this may include reference ranges. PLT - PLATELET COUNT 2025-05-19 12:44 [facility] 223 10 3/ul (missing) CK- CREATINE KINASE 2025-05-19 12:44 [facility] 233 iu/l As of March 2023 testing method has changed, this may include reference ranges. CARBON DIOXIDE - CO2 2025-05-19 12:44 [facility] 24 mmol/l As of March 2023 testing method has changed, this may include reference ranges. BUN - BLOOD UREA NITROGEN 2025-05-19 12:44 [facility] 26 mg/dl As of March 2023 testing method has changed, this may include reference ranges. MEAN CORPUSCULAR HEMOGLOBIN 2025-05-19 12:44 [facility] 29.5 pg (missing) GLOBULIN 2025-05-19 12:44 [facility] 3.2 g/dl (missing) ALBUMIN 2025-05-19 12:44 [facility] 3.4 g/dl As of March 2023 testing method has changed, this may include reference ranges. RED BLOOD COUNT 2025-05-19 12:44 [facility] 3.49 10 6/ul (missing) POTASSIUM 2025-05-19 12:44 [facility] 3.9 mmol/l As of March 2023 testing method has changed, this may include reference ranges. HCT - HEMATOCRIT 2025-05-19 12:44 [facility] 30.3 % (missing) GLUCOSE 2025-05-19 12:44 [facility] 337 mg/dl As of March 2023 testing method has changed, this may include reference ranges. MEAN CORPUSCULAR HGB CONC 2025-05-19 12:44 [facility] 34.0 g/dl (missing) GFR - MDRD 2025-05-19 12:44 [facility] 59 (missing) The IDMS-traceable MDRD Study Equation has been validated extensively in and populations between the ages of 18 and 70 with impaired kidney function (eGFR < 60 mL/min/1.73m2) and has shown good performance for patients with all common causes of kidney disease. Although this equation has not been validated for patients older than 70, an MDRD-derived eGFR may still be a useful tool for providers caring for patients older than 70. References: http://www.nkdep.ni h.gov/lab-evaluatio n/gfr/creatinine-st and ardization, last updated November 2011. NEUTROPHILS # (AUTO) 2025-05-19 12:44 [facility] [employer] 6.0 10 3/ul (missing) TOTAL PROTEIN 2025-05-19 12:44 [facility] [employer] [facility] 6.6 g/dl As of March 2023 testing method has changed, this may include reference ranges. ANION GAP 2025-05-19 12:44 [facility] [employer] 7.0 (missing) (missing) WHITE BLOOD COUNT 2025-05-19 12:44 [facility] [employer] 7.5 x10 3/ul (missing) ALT ALANINE AMINOTRANSFERASE 2025-05-19 12:44 [facility] [employer] 8 iu/l As of March 2023 testing method has changed, this may include reference ranges. CALCIUM 2025-05-19 12:44 [employer] 8.7 mg/dl As of March 2023 testing method has changed, this may include reference ranges. MEAN PLATELET VOLUME 2025-05-19 12:44 [employer] [facility] 8.9 fl (missing) ALKALINE PHOSPHATASE 2025-05-19 12:44 [facility] 80 iu/l As of March 2023 testing method has changed, this may include reference ranges. MEAN CORPUSCULAR VOLUME 2025-05-19 12:44 [facility] [employer] 86.8 fl (missing) CHLORIDE 2025-05-19 12:44 [facility] 95 mmol/l As of March 2023 testing method has changed, this may include reference ranges. Result panel 3 GLUCOSE, WHOLE BLOOD 2025-05-19 14:19 [employer] 244 (missing) RN notified. Result panel 4 UROBILINOGEN,URINE 2025-05-19 17:00 [employer] 0.2 (NORMAL) e.u./dl (missing) SPECIFIC GRAVITY,URINE 2025-05-19: [facility] [employer] 1.020 (missing) (missing) PH,URINE 2025-05-19: [facility] 6.0 ph (missing) CLARITY,URINE 2025-05-19: [facility] [employer] CLEAR (missing) (missing) MUDS CUTOFF CONCENTRATIONS 2025-05-19: [facility] CUTOFF CONC BELOW: (missing) [facility] uses the PROFILE-V MyVerse Drugs of Abuse Test System. It detects drug classes at the following cutoff concentrations: AMP Amphetamine (d-Amphetamine) 500 ng/mL BAR Barbiturates (Butalbital) 200 ng/mL BZO Benzodiazepines (Nordiazepam) 150 ng/mL BUP Buprenorphine (Buprenorphine) 10 ng/mL YURIY Cocaine (Benzoylecgonine) 150 ng/mL MAMP Methamphetamine (d-Methamphetamine ) 500 ng/mL MTD Methadone (Methadone) 200 ng/mL OPI Opiates (Morphine) 100 ng/mL OXY Oxycodone (Oxycodone) 100 ng/mL PCP Phencyclidine (Phencyclidine) 25 ng/mL BUP Buprenorphine (Buprenorphine) 10 ng/mL THC Cannabinoids (64-tnt-7-carboxy- 9-THC) 50 ng/mL TCA Tricyclic Antidepressants (Desipramine) 300 ng/mL All drug screen results are unconfirmed. Results are to be used for medical (i.e. treatment) purposes only. Unconfirmed screening results must not be used for non-medical purposes (e.g., employment testing, legal testing). AMPHETAMINE SCREEN,URINE 2025-05-19: [facility] NEGATIVE (missing) (missing) BARBITURATE SCREEN,UR 2025-05-19: [facility] [employer] NEGATIVE (missing) (missing) BENZODIAZEPINES SCREEN, URINE [facility] NE[facility] (missing) (missing) BUPRENORPHINE SCREEN, URINE [facility]25-05-19[facility] NE[facility] (missing) (missing) COCAINE SCREEN URINE 2025-05-19: [facility] [employer] NEGATIVE (missing) (missing) LEUKOCYTE ESTERASE, URINE 2025-05-19 17:00 [facility] NEGATIVE (missing) (missing) METHADONE SCREEN, URINE 2025-05-19 17:00 [facility] NEGATIVE (missing) (missing) METHAMPHETAMINES SCREEN, URINE 2025-05-19 17:00 [facility] NEGATIVE (missing) (missing) NITRITE,URINE 2025-05-19 17:00 [facility] NEGATIVE (missing) (missing) OCCULT BLOOD,URINE 2025-05-19 17:00 [facility] NEGATIVE (missing) (missing) OPIATE SCREEN, URINE 2025-05-19 17:00 [facility] NEGATIVE (missing) (missing) OXYCODONE SCREEN, URINE 2025-05-19 17:00 [facility] NEGATIVE (missing) (missing) PHENCYCLIDINE SCREEN, URINE 2025-05-19 17:00 [facility] NEGATIVE (missing) (missing) THC CANNABINOID SCREEN, URINE 2025-05-19 17:00 [facility] NEGATIVE (missing) (missing) TRICYCLIC ANTIDEPRESSANT,URINE 2025-05-19 17:00 [facility] NEGATIVE (missing) (missing) BILIRUBIN,URINE 2025-05-19 17:00 [facility] NEGATIVE (missing) Bilirubin can be influenced by color interference. Please correlate positive results with clinical presentation GLUCOSE, URINE (UA) 2025-05-19 17:00 [facility] NEGATIVE mg/dl (missing) KETONES,URINE (UA) 2025-05-19 17:00 [facility] NEGATIVE mg/dl (missing) PROTEIN,URINE 2025-05-19 17:00 [facility] NEGATIVE mg/dl (missing) UR CULTURE IF IND 2025-05-19 17:00 [facility] NOT INDICATED (missing) (missing) URINE MICROSCOPIC INDICATED? 2025-05-19 17:00 [facility] NOT INDICATED (missing) (missing) COLOR,URINE 2025-05-19 17:00 [facility] YELLOW (missing) URINE CATHETERIZED Result panel 5 NUCLEATED RED BLOOD CELLS AUTO 2025-07-21 19:28 [facility] 0.0 /100wbc (missing) BASOPHILS # (AUTO) 2025-07-21 19:28 [facility] 0.0 10 3/ul (missing) EOSINOPHILS # (AUTO) 2025-07-21 19:28 [facility] 0.0 10 3/ul (missing) NRBC ABSOLUTE COUNT (AUTO) 2025-07-21 19:28 [facility] 0 .00 x10 3/ul (missing) MONOCYTES # (AUTO) 2025-07-21 19:28 [facility] 0.5 10 3/ul (missing) LYMPHOCYTES # (AUTO) 2025-07-21 19:28 [facility] 0.6 10 3/ul (missing) HGB - HEMOGLOBIN 2025-07-21 19:28 [facility] 12.1 g /dl (missing) RED CELL DISTRIBUTION WIDTH 2025-07-21 19:28 [facility] 15.2 % (missing) PLT - PLATELET COUNT 2025-07-21 19:28 [facility] 206 10 3/ul (missing) MEAN CORPUSCULAR HEMOGLOBIN 2025-07-21 19:28 [facility] 28.9 pg (missing) MEAN CORPUSCULAR HGB CONC 2025-07-21 19:28 [facility] 32 .1 g/dl (missing) HCT - HEMATOCRIT 2025-07-21 19:28 [facility] 37.7 % (missing) RED BLOOD COUNT 2025-07-21 19:28 [facility] 4.18 10 6/ul (missing) NEUTROPHILS # (AUTO) 2025-07-21 19:28 [facility] 7.1 10 3/ul (missing) WHITE BLOOD COUNT 2025-07-21 19:28 [facility] 8.4 x10 3/ul (missing) MEAN PLATELET VOLUME 2025-07-21 19:28 [facility] 9.5 fl (missing) MEAN CORPUSCULAR VOLUME 2025-07-21 19:28 [facility] 90.2 fl (missing) Social History date description facility
--- NOTE | 2025-07-21 20:11 | ED Physician Documentation ---
PD HPI ALTERED MENTAL STATUS Stated complaint Stated Complaint: GLF Chief complaint Chief Complaint: Neuro Additional information Additional information: 89-year-old female with type 1 diabetes presents emergency department via EMS after being found down. Patient daughter lives in [place] and called [employer] came to find the patient laying on the ground next to her car upon arrival she was 92 F auxiliary and her blood sugar was 45 they gave her D10 in the field and started her on some warmed IV fluids. Patient says that she thinks she has had low blood sugar before but she does not think she has experienced it with the hypothermia. Patient was found outside she did not fully lose consciousness no actual fall she said that she was able to lower herself to the ground because she is feeling really weak and tired. She denies any recent illnesses. Meds/Allgy Home Medications Ambulatory Orders Medication Instructions Recorded Confirmed insulin aspart (niacinamide) 4 - 6 unit subcut ACHS 05/19/25 (U-100) 100 unit/mL subcutaneous solution (Fiasp U-100 Insulin) insulin glargine U-300 conc 300 6 units subcut DAILY 0 10/09/23 05/19/25 unit/mL (1.5 mL) subcutaneous pen ([employer] SoloStar U-300 Insulin) Allergies Allergies Allergy/AdvReac Type Severity Reaction Status Date / Time Antihistamines - Alkylamine Allergy Unknown Verified 07/21/25 19:16 Penicillins Allergy Rash Verified 07/21/25 19:16 [facility] Active Problems All Active Problems (Updated 07/21/25 @ 20:30 by Shahla Ruiz DNP) Hypoglycemia (Acute) Hypothermia (Acute) Medical History Medical History (Updated 07/21/25 @ 20:30 by Shahla Ruiz DNP) History of colitis History of diabetes insipidus Surgical History Surgical History (Updated 05/19/25 @ 12:47 by Alexey Aceves, RN, BSN) 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 (Date/Year): 09/26/1956 Do you vape?: No Marital Status: Single Living Condition: Alone and With caregiver(s) Support Person: Yes Physical Activity: Walking Do you feel safe in your home environment?: Yes History of physical, verbal, emotional, or financial abuse?: No ETOH Use: Wine Frequency: Occasional Substance Use: denies use Exam Exam Vital Signs: Vital Signs x48h Temp Pulse Resp BP Pulse Ox 07/21/25 19:53 36.4 C L 87 22 138/84 H 100 07/21/25 19:15 94 C H 114 H 23 178/122 H 100 07/21/25 19:06 34.4 C L 89 19 178/92 H 98 Constitutional normal general appearance, no apparent distress, average body habitus, no limitations and alert HENLA normocephalic and head/scalp atraumatic Eyes PERRL Chest inspection of chest normal Respiratory breath sounds equal bilaterally and normal respiratory effort Cardiovascular normal heart rate noted Gastrointestinal abdomen normal to inspection, abdomen soft to palpation, nontender to palpation, nondistended and no masses Genitourinary no CVA tenderness Extremities normal to inspection Results Vitals Vitals: Vital Signs - 24 hr 07/21/25 19:06 07/21/25 19:15 07/21/25 19:53 Temperature 34.4 C L 94 C H 36.4 C L Temperature Source Rectal Tympanic Tympanic Pulse Rate 89 114 H 87 Respiratory Rate 19 23 22 Blood Pressure 178/92 H 178/122 H 138/84 H O2 Saturation 98 100 100 O2 Source Room air Room air Room air Pain Intensity 5 0 Oxygen O2 Source Room air Labs Labs: Laboratory Tests 07/21/25 19:28 WBC 8.4 RBC 4.18 L Hgb 12.1 Hct 37.7 MCV 90.2 MCH 28.9 MCHC 32.1 RDW 15.2 H Plt Count 206 MPV 9.5 Neut # (Auto) 7.1 H Lymph # (Auto) 0.6 L Gem # (Auto) 0.5 Eos # (Auto) 0.0 Baso # (Auto) 0.0 Absolute Nucleated RBC 0.00 Nucleated RBC % 0.0 Sodium 132 L Potassium 3.8 Chloride 99 L Carbon Dioxide 24 Anion Gap 9.0 BUN 12 Creatinine 0.4 L Estimated GFR (MDRD) 151 Glucose 165 H Lactic Acid 1.8 Calcium 8.8 Total Bilirubin 1.1 H AST 24 ALT 17 Alkaline Phosphatase 94 Total Creatine Kinase 131 Total Protein 7.5 Albumin 3.9 Globulin 3.6 Albumin/Globulin Ratio 1.1 Procalcitonin Immunoas < 0.05 TSH 1.77 PD Medical Decision Making ED course ED course: 89-year-old female with a history of type 1 diabetes presented via EMS after nohemy crockett found down outside her car. According to EMS, the patients daughter, who lives out of state, requested a welfare check after being unable to reach her mother. Upon EMS arrival, the patient was found lying next to her car, alert but weak. Initial field assessment revealed a rectal temperature of 92F (33.3C) and blood glucose of 45 mg/dL. She received D10 and warmed IV fluids en route, with improvement in her mental status and blood glucose. The patient reported prior episodes of hypoglycemia but denied experiencing hypothermia in the past. She did not lose consciousness or fall, stating she lowered herself to the ground due to fatigue. She denied recent illness, infectious symptoms, nausea, vomiting, or chest pain. On arrival, she was hemodynamically stable but remained mildly hypothermic initially. Physical exam was otherwise unremarkable, with no signs of injury. Labs demonstrated a glucose of 165 mg/dL post-D10 infusion, normal WBC count, mild hyponatremia (Na 132), and mild indirect hyperbilirubinemia (T. bili 1.1). Lactic acid and procalcitonin were within normal limits. There were no focal findings to suggest infection or sepsis. Blood cultures were obtained as precautionary screening. The patient was placed on aBair Huggerwarming device, resulting in improved core temperature to 36.5C rectally. Mentation also improved as her glucose normalized. No evidence of acute infection, trauma, or cardiovascular instability was present. Differential diagnosis includeshypoglycemia secondary to insulin use,accidental exposure leading to hypothermia, and less likelyse psis or hypothyroidism, both considered given presentation but ruled out based on normal TSH and negative infectious workup thus far. Given her advanced age, type 1 diabetes, and initial presentation with hypoglycemia and hypothermia, the decision was made foradmission to inpatient observationfor continued monitoring of blood glucose levels, temperature, and mental status. Case discussed withHospitalist Vish Mishra, who accepted the patient for overnight observation. Patient stabilized in the emergency department, responded appropriately to rewarming and glucose correction, and was transferred to the inpatient unit in improved and stable condition. Risk level assessed asmoderatedue to combined metabolic and thermoregulatory derangements but currently stable for monitored admission. Discharge Plan Discharge Patient Disposition: [facility] DC/Xfer Condition: Good Clinical Impression: Hypothermia, Hypoglycemia Interventions: ED Admission Assessment Last Done: 07/21/25 21:18 Vitals documented within 30 minutes of discharge?: Yes
[2025-07-21] MEDS ORDERED: ONDANSETRON ODT 4 MG TABLET TL PRN (21:17)
[2025-07-21] MEDS ORDERED: SODIUM CHLORIDE FLUSH 0.9% 10 ML SYRINGE IVP PRN (21:17)
[2025-07-21] MEDS ORDERED: ONDANSETRON 4 MG/2 ML VIAL IVP PRN (21:17)
[2025-07-21] MEDS: LACTATED RINGERS 1,000 ML IV SCH (21:28)
--- NOTE | 2025-07-21 21:28 | HISTORY & PHYSICAL EXAMINATION ---
Chief Complaint Chief Complaint Chief Complaint: Fall History of Present Illness Admitted From Admitted From:: Lives home alone History Obtained From History obtained from: Patient interview History of Present Illness HPI Comment/Other: 89-year-old female with history of type 1 diabetes who was brought in by ambulance after being found down. She reports that she was out by her car, when she felt extremely weak and fell. She reports being on the ground outside in the rain for about 3 hours. She denies syncope, states that she felt just because she was incredibly weak. When asked if this was similar to other episodes of hypoglycemia, she said it was. She denies any injury with the fall. Per ER notes, patient's daughter who lives out of state called a wellness check. Patient says it was her neighbor. Nonetheless, she was found to have a temperature of 92 F and a blood sugar of 45 on the scene. EMS started her on D10, warmed. She denies recent illness. Denies recent fevers, chest pain, dyspnea, wheezing, bowel or bladder abnormality. Reports good sensation in her hands and feet In the ER, initial vital signs revealed a temperature of 34.4 Celsius, so she was placed on Casimiro hugger. Lab work revealed glucose had corrected to 165, procalcitonin negative, TSH normal, CK nonelevated. Workup was overall benign. Patient's temperature corrected to 36.4 C after some time on the Casimiro hugger. Hospitalist was contacted for observation because of her hypothermic event in the setting of hypoglycemia and being found down Meds/Allgy Home Medications Ambulatory Orders Medication Instructions Recorded Confirmed insulin aspart (niacinamide) 4 - 6 unit subcut ACHS 05/19/25 (U-100) 100 unit/mL subcutaneous solution (Fiasp U-100 Insulin) insulin glargine U-300 conc 300 6 units subcut DAILY 0 10/09/23 05/19/25 unit/mL (1.5 mL) subcutaneous pen ([employer] SoloStar U-300 Insulin) Allergies Allergies Allergy/AdvReac Type Severity Reaction Status Date / Time Antihistamines - Alkylamine Allergy Unknown Verified 07/21/25 19:16 Penicillins Allergy Rash Verified 07/21/25 19:16 [facility] Active Problems All Active Problems (Updated 07/21/25 @ 20:30 by Shahla Ruiz DNP) Hypoglycemia (Acute) Hypothermia (Acute) Medical History Medical History (Updated 07/21/25 @ 20:30 by Shahla Ruiz DNP) History of colitis History of diabetes insipidus Surgical History Surgical History (Updated 05/19/25 @ 12:47 by Alexey Aceves, RN, BSN) 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 (Date/Year): 09/26/1954 Do you vape?: No Marital Status: Single Living Condition: Alone and With caregiver(s) Support Person: Yes Physical Activity: Walking Do you feel safe in your home environment?: Yes History of physical, verbal, emotional, or financial abuse?: No ETOH Use: Wine Frequency: Occasional Substance Use: denies use Review of Systems Status of ROS: 10 or more systems reviewed and unremarkable except as noted in history and below Exam Exam Vital Signs: Vital Signs x48h Temp Pulse Resp BP Pulse Ox 07/21/25 21:18 67 87 H 124/78 98 07/21/25 19:53 36.4 C L 87 22 138/84 H 100 07/21/25 19:15 94 C H 114 H 23 178/122 H 100 07/21/25 19:06 34.4 C L 89 19 178/92 H 98 Constitutional normal general appearance and no apparent distress HENMT normocephalic and head/scalp atraumatic Eyes PERRL Chest inspection of chest normal Respiratory breath sounds equal bilaterally and normal respiratory effort Cardiovascular normal heart rate noted and regular rhythm noted Gastrointestinal abdomen normal to inspection and abdomen soft to palpation Extremities normal to inspection and normal to palpation Good color and extremities, cap refill nondelayed Neurology GCS 15 Psychiatry oriented x3 Skin skin color normal Conclusion/Plan Problem List (1) Hypothermia: Plan: Patient found down near her car in the rain Her temperature has corrected well Will repeat CBC and chemistry in the morning No longer needs Casimiro hugger Monitor on telemetry overnight (2) Hypoglycemia: Plan: History of type 1 diabetes on Lantus and SSI Start SSI Most recent A1c was in February and it was 6. Recheck A1c in a.m. Plan Place in observation DNR Her daughter is her surrogate decision maker Lab Results Lab results reviewed: Yes 07/21/25 19:28 07/21/25 19:28 Core Measures Anticipated LOS I expect patient to be DC'd or transferred within 96 hours.: Yes DVT/VTE - Prophylaxis VTE/DVT Prophylaxis med ordered at admit?: Yes
[2025-07-22] MEDS: SODIUM CHLORIDE FLUSH 0.9% 10 ML SYRINGE IVP SCH (01:02)
[2025-07-22 04:24] LABS: HCT - HEMATOCRIT 30.0 % (37.0-47.0); HGB - HEMOGLOBIN 9.9 g/dL (12.0-16.0); MEAN PLATELET VOLUME 9.3 fL (7.9-10.8); NRBC ABSOLUTE COUNT (AUTO) 0.00 x10^3/uL; NUCLEATED RED BLOOD CELLS AUTO 0.0 /100WBC; PLT - PLATELET COUNT 168 10^3/uL (130-450); RED CELL DISTRIBUTION WIDTH 15.2 % (12.0-15.0)
[2025-07-22 04:43] LABS: BUN - BLOOD UREA NITROGEN 12.0 mg/dL (6-20); CARBON DIOXIDE - CO2 25.0 mmol/L (21-32); CREATININE 0.5 mg/dL (0.6-1.3); GFR - MDRD 116.0 (>89)
[2025-07-22] MEDS: INSULIN LISPRO 300 UNIT/3 ML PEN SUBQ SCH (07:58)
[2025-07-22 11:00] LABS: ESTIMATED AVERAGE GLUCOSE 131 mg/dL (70-100); HEMOGLOBIN A1c% 6.2 % (4.27-6.07)
--- NOTE | 2025-07-22 11:29 | Discharge Summary ---
Discharge Summary Admit Date: 07/21/25 Discharge Date: 07/22/25 Discharging Provider: Vish Mishra Primary Care Provider: Elizabeth Aguirre Code Status: Do Not Attempt Resuscitation DIAGNOSES Discharge Diagnoses with Status of Each Condition: Hypothermiaresolved Hypoglycemiareducing insulin dose as directed by endocrinology Type 1 diabeteschronic HPI History of Present Illness: 89-year-old female with history of type 1 diabetes who was brought in by ambulance after being found down. She reports that she was out by her car, when she felt extremely weak and fell. She reports being on the ground outside in the rain for about 3 hours. She denies syncope, states that she felt just because she was incredibly weak. When asked if this was similar to other episodes of hypoglycemia, she said it was. She denies any injury with the fall. Per ER notes, patient's daughter who lives out of state called a wellness check. Patient says it was her neighbor. Nonetheless, she was found to have a temperature of 92 F and a blood sugar of 45 on the scene. EMS started her on D10, warmed. She denies recent illness. Denies recent fevers, chest pain, dyspnea, wheezing, bowel or bladder abnormality. Reports good sensation in her hands and feet In the ER, initial vital signs revealed a temperature of 34.4 Celsius, so she was placed on Casimiro hugger. Lab work revealed glucose had corrected to 165, procalcitonin negative, TSH normal, CK nonelevated. Workup was overall benign. Patient's temperature corrected to 36.4 C after some time on the Casimiro hugger. Hospitalist was contacted for observation because of her hypothermic event in the setting of hypoglycemia and being found down HOSPITAL COURSE Hospital Course: Patient was observed overnight on telemetry. No acute events noted. Today, she is alert and mobile. I reached out to endocrinology at [facility], who she is established with. I am decreasing her dose of insulin to allow for looser control as her A1c's have consistently been in the low 6 range and she is only 150 pounds. She was evaluated by our diabetes nurse educator and is being discharged home to follow-up with her PCP as well as with endocrinology ALLERGIES Allergies Allergy/AdvReac Type Severity Reaction Status Date / Time Antihistamines - Alkylamine Allergy Unknown Verified 07/21/25 19:16 Penicillins Allergy Rash Verified 07/21/25 19:16 MEDICATIONS Ambulatory Orders Medication Instructions Recorded Confirmed insulin aspart (niacinamide) 3 - 5 unit subcut AC 09/2607/22/25 (U-100) 100 unit/mL subcutaneous solution (Fiasp U-100 Insulin) cholecalciferol (vitamin D3) 25 25 mcg PO DAILY 07/22/25 mcg (1,000 unit) tablet (PureVita Vitamin D3) insulin glargine U-300 conc 300 3 unit (0.01 mL) subcu t QAM #4.5 mL 07/22/25 07/22/25 unit/mL (1.5 mL) subcutaneous pen (Toujeo SoloStar U-300 Insulin) vitamins A,C,U-djdo-ypwtwk 1 tab PO QAM 07/22/2507/22 PHYSICAL EXAM AT DISCHARGE Vital Signs: Vital Signs x48h Temp Pulse Resp BP Pulse Ox 07/22/25 17:45 98.1 F 71 20 164/77 H 98 Physical Exam Other/Comments: Constitutional normal general appearance and no apparent distress HENMT normocephalic and head/scalp atraumatic Eyes PERRL Chest inspection of chest normal Respiratory breath sounds equal bilaterally and normal respiratory effort Cardiovascular normal heart rate noted and regular rhythm noted Gastrointestinal abdomen normal to inspection and abdomen soft to palpation Extremities normal to inspection and normal to palpation Good color and extremities, cap refill nondelayed Neurology GCS 15 Psychiatry oriented x3 Skin skin color normal LABS 07/22/25 04:12 07/22/25 04:12 FOLLOW UP Follow Up: With PCP, endocrinology TIME SPENT Time Spent in Discharge (Minutes): 40 Discharge Plan Discharge Patient Disposition: Home, Self Care Condition: Good Prescriptions: Continued Fiasp U-100 Insulin 100 UNIT/ML solution 3 - 5 unit subcut AC vitamins A,C,P-cjsw-sdxqhp [Ocuvite Preservision] 1 tab PO QAM cholecalciferol (vitamin D3) [PureVita Vitamin D3] 25 mcg (1,000 unit) tablet 25 mcg PO DAILY Changed insulin glargine U-300 conc [Toujeo SoloStar U-300 Insulin] 300 UNIT/ML insulin pen 3 unit subcut QAM Qty: 4.5 0RF Diet: Diabetic Interventions: Discharge Last Done: 07/22/25 19:04 Discharge Checklist - Nursing Last Done: 07/22/25 19:04 Health Concerns: You came into the hospital because you were found down outside your car. I believe this is secondary to a hypoglycemic event. You were placed in observation because you were very hypothermic. You inform me that your manager pest has been working on de-escalating your insulin regimen since April. I am further de-escalating it. I would like to reduce your dose of long-acting insulin from 5 units to 3 units/day. I would encourage you to reach out to soon as possible to your manager pest for further recommendations Fall and Injury Precautions:After a hypoglycemic event and fall, be cautious with activities that could lead to injury. If dizziness, weakness, or confusion persists, seek medical attention. Hypothermia Recovery:Dress warmly and avoid prolonged exposure to cold. If shivering, confusion, or persistent cold symptoms occur, contact a healthcare provider. Sick Day Management:Illness and stress can affect blood glucose. Monitor glucose and ketones more frequently during illness. Maintain hydration and carbohydrate intake. Never stop insulin; adjust doses as needed in consultation with your healthcare team. Seek urgent care for persistent vomiting, dehydration, or high ketones.[1] Prevention:Review insulin regimen with your diabetes care team to reduce future hypoglycemia risk. Consider raising glycemic targets temporarily Follow-Up:Schedule an outpatient follow-up with your diabetes provider within 12 weeks. Bring records of glucose readings and any hypoglycemic episodes. Please also follow-up with PCP Education and Supplies:Ensure you have adequate supplies (insulin, glucose meter/CGM, test strips, glucagon kit). Review proper use and disposal of diabetes supplies. Consider meeting with a clinical informatics educator or dietitian for individualized meal planning. When to Seek Help:Call your healthcare provider or seek emergency care for: Repeated or severe hypoglycemia Persistent confusion, weakness, or injury after a fall Signs of infection, dehydration, or high ketones Difficulty managing blood glucose at home Contact Information: For questions or concerns, contact your diabetes care team and/or PCP Print Language: Bolivian Patient Instructions: Hypoglycemia (Low Blood Sugar) Stand Alone Forms: PCP List Follow-up Care: ELIZABETH AGUIRRE ARNP [Primary Care Provider, Nurse Practitioner] Vitals documented within 30 minutes of discharge?: Yes (36.7 164/77 98% 71 20)
[2025-07-22 11:42] VITALS: O2SAT 98
--- NOTE | 2025-07-22 12:27 | PHARMACY PROGRESS NOTE ---
Best Possible Medication History Admit Date and Time: 07/21/25 801901 Home Medications Medication Instructions Recorded Confirmed Type insulin aspart (niacinamide) 3 - 5 unit subcut AC 09/2607/22/25 History (U-100) 100 unit/mL subcutaneous solution (Fiasp U-100 Insulin) insulin glargine U-300 conc 300 5 unit subcut QAM 09/2607/22/25 History unit/mL (1.5 mL) subcutaneous pen (Toujeo SoloStar U-300 Insulin) cholecalciferol (vitamin D3) 25 25 mcg PO DAILY 07/22/25 History mcg (1,000 unit) tablet (PureVita Vitamin D3) vitamins A,C,E-dfwf-jexdqv 1 tab PO QAM 07/22/2507/22 History Processed by: Pharmacy (Medication reconciliation completed by English Language Learner TutorKristie) Medications reviewed in ED?: No Medication History completed: Yes Patient Interview: Completed Secondary Source(s): Insurance records [facility] Statement: As the person ultimately responsible for medication therapy, providers are able to order a medication from an existing home medication list in [facility] via the "Reconcile Routine" prior to Confirmation of that medication by legal support specialist. Such practice is discouraged except when the physician, in their clinical judgment, deems that a medical need exists for a medication without regard to previous use.
--- NOTE | 2025-07-22 13:42 | PT Plan of Care ---
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 PMH includes B TKA's, L hip ORIF (02/13/25), DM1, please see chart for complete medical hx. The pt was received resting comfortably supine in bed and presented today with fair B UE and LE strength and mildly decreased activity tolerance which limited her tolerance during functional mobility. At this time the pt does not appear to require continued skilled PT intervention while in the acute setting and it is recommended that she DC home and resume OPPT to address the ongoing LE weakness once medically stable. This plan was discussed with the pt, she was in agreement with this. At the end of the session the pt was sitting up in a chair with call light in reach and all needs met. RN and HORACE updated on pt's status and DC rec, no goals will be set as this is an eval only. PATIENT/FAMILY GOALS Patient/Family Goals: To get back home and not fall anymore PLAN Frequency: Evaluation only, no further P.T. DISCHARGE RECOMMENDATIONS Discharge Location: Previous Living Situation Support/Services Needed: Outpt. P.T. Other Discharge Equipment: pt owns all recommended DME Transport Needs at Discharge: Personal vehicle
[2025-07-22 19:03] VITALS: BP 164/77; TEMP 98.1
[2025-07-22] MEDS ORDERED: ENOXAPARIN 40 MG/0.4 ML SYRINGE SUBQ SCH (21:00)
== END 2025-07-22 18:15 | disposition home or self-care (01) ==
LOC: MS3 18:58 → ED 18:58 → MS3 21:19
PROVIDERS: ADMIT Nurse Practitioner Acute Care; ATTEND Nurse Practitioner Acute Care
DX: E10.649 Type 1 diabetes mellitus with hypoglycemia without coma; X31.XXXA Exposure to excessive natural cold, initial encounter; T68.XXXA Hypothermia, initial encounter; Z66 Do not resuscitate; Z87.891 Personal history of nicotine dependence